=== PATIENT | male | born 1990 | race American Indian/Alaskan Native ===

== ENCOUNTER 2019-09-06 18:23 | Emergency (ER) | payer SELFPAY ==
--- NOTE | 2019-09-06 18:51 | Emergency Department Report ---
Blank Doc - Documentation Documentation: 28-year-old male that presents with right sided chest pain with radiation to r ight arm. Denies any SOB. This initial assessment/diagnostic orders/clinical plan/treatment(s) is/are subject to change based on patient's health status, clinical progression and re- assessment by fellow clinical providers in the ED. Further treatment and workup at subsequent clinical providers discretion. Patient/guardians urged not to elope from the ED as their condition may be serious if not clinically assessed and managed. Initial orders include: 1- Patient sent to [facility] for further evaluation and treatment 2- CXR 4- EKG
[2019-09-06 18:53] VITALS: BP 130/84
--- NOTE | 2019-09-06 19:44 | XRay Report ---
CHEST 2 VIEWS 192 INDICATION / CLINICAL INFORMATION: Right-sided intermittent chest pain radiating to right upper extre mity COMPARISON: None available. FINDINGS: SUPPORT DEVICES: None. HEART / MEDIASTINUM: No significant abnormality. LUNGS / PLEURA: No significant pulmonary or pleural abnormality. No pneumothorax. ADDITIONAL FINDINGS: No significant additional findings. IMPRESSION: No significant acute abnormality Signer Name: Micha Montalvo MD Signed: 09/06/2019 7:39 PM Workstation Name: [id number]
[2019-09-06] MEDS ORDERED: IBUPROFEN 800 MG TAB PO ONE (23:31)
--- NOTE | 2019-09-06 23:38 | Emergency Department Report ---
ED General Adult HPI - General Chief complaint: Chest Pain Stated complaint: ARM PAIN/SHOULDER PAIN Time Seen by Provider: 09/06/19 18:50 Source: patient Mode of arrival: Ambulatory Limitations: No Limitations - History of Present Illness Initial comments: Sided chest pain and radiating to right. There is no numbness no tingling or paralysis. pt denies sob, no wheezing, no n/v . symptoms are exacerabated by activity , symptoms relieve bn nothing. pt denies fall iury, or trauma, or and all - Related Data Previous Rx's Medication Instructions Recorded Last Taken Type Albuterol Sulfate [Ventolin HFA] 2 puff IH Q4H PRN #1 hfa.aer.ad 01/30/16 Unknown Rx Cetirizine HCl [ZyrTEC] 10 mg PO DAILY #20 capsule 01/30/16 Unknown Rx ALBUTEROL Inhaler (OR & NICU) 2 puff IH QID PRN #8.5 gram 09/06/19 Unknown Rx [ProAir HFA Inhaler] Amoxicillin/Potassium Clav 1 each PO BID 10 Days #20 tablet 09/06/19 Unknown Rx [Augmentin 875-125 Tablet] Benzonatate [Tessalon Perles] 100 mg PO Q8HR PRN #30 capsule 09/06/19 Unknown Rx Ibuprofen [Motrin 800 MG tab] 800 mg PO Q8HR PRN #30 tablet 09/06/19 Unknown Rx predniSONE [Deltasone] 40 mg PO QDAY 5 Days #10 tab 09/06/19 Unknown Rx Allergies Allergy/AdvReac Type Severity Reaction Status Date / Time No Known Allergies Allergy Verified 01/29/16 23:43 ED Review of Systems ROS: Stated complaint: ARM PAIN/SHOULDER PAIN Other details as noted in HPI ED Past Medical Hx - Past Medical History Previous Medical History?: Yes Hx Asthma: Yes - Surgical History Past Surgical History?: No - Social History Smoking Status: Never Smoker Substance Use Type: None - Medications Home Medications: Home Medications Medication Instructions Recorded Confirmed Last Taken Type Albuterol Sulfate [Ventolin HFA] 2 puff IH Q4H PRN #1 hfa.aer.ad 01/30/16 Unknown Rx Cetirizine HCl [ZyrTEC] 10 mg PO DAILY #20 capsule 01/30/16 Unknown Rx ALBUTEROL Inhaler (OR & NICU) 2 puff IH QID PRN #8.5 gram 09/06/19 Unknown Rx [ProAir HFA Inhaler] Amoxicillin/Potassium Clav 1 each PO BID 10 Days #20 tablet 09/06/19 Unknown Rx [Augmentin 875-125 Tablet] Benzonatate [Tessalon Perles] 100 mg PO Q8HR PRN #30 capsule 09/06/19 Unknown Rx Ibuprofen [Motrin 800 MG tab] 800 mg PO Q8HR PRN #30 tablet 09/06/19 Unknown Rx predniSONE [Deltasone] 40 mg PO QDAY 5 Days #10 tab 09/06/19 Unknown Rx ED Physical Exam - General Limitations: No Limitations ED Course Vital Signs 09/06/19 18:51 Temperature 98.1 F Pulse Rate 104 H Respiratory 18 Rate Blood Pressure 130/84 O2 Sat by Pulse 100 Oximetry ED Medical Decision Making - Radiology Data Radiology results: report reviewed, image reviewed Ordering Physician: JOE SAVAGE NP Date of Service: 09/06/19 Procedure(s): XR chest routine 2V Accession Number(s): [id number] cc: JOE SAVAGE NP Fluoro Time In Minutes: CHEST 2 VIEWS 1925 INDICATION / CLINICAL INFORMATION: Right-sided intermittent chest pain radiating to right upper extremity COMPARISON: None available. FINDINGS: SUPPORT DEVICES: None. HEART / MEDIASTINUM: No significant abnormality. LUNGS / PLEURA: No significant pulmonary or pleural abnormality. No pneumothorax. ADDITIONAL FINDINGS: No significant additional findings. IMPRESSION: No significant acute abnormality Signer Name: Micha Montalvo MD Signed: 09/06/2019 7:39 PM Workstation Name: [id number] Transcribed By: GJ Dictated By: Micha Montalvo MD Electronically Authenticated By: Micha Montalvo MD Signed Date/Time: 09/06/191938 DD/ 38 TD/TT: - Medical Decision Making This is a bronchitis or treatment of albuterol steroid inserted antihistamine patient follow up with PCP in 2-3 days pt verbalized agreement and under standing of same. Critical care attestation.: If time is entered above; I have spent that time in minutes in the direct care of this critically ill patient, excluding procedure time. ED Disposition Clinical Impression: Bronchitis Disposition: DC-01 TO HOME OR SELFCARE Is pt being admited?: No Does the pt Need Aspirin: No Instructions: Acute Bronchitis (ED) Prescriptions: Amoxicillin/Potassium Clav [Augmentin 875-125 Tablet] 1 each PO BID 10 Days #20 tablet predniSONE [Deltasone] 40 mg PO QDAY 5 Days #10 tab Ibuprofen [Motrin 800 MG tab] 800 mg PO Q8HR PRN #30 tablet PRN Reason: pain fever ALBUTEROL Inhaler (OR & NICU) [ProAir HFA Inhaler] 2 puff IH QID PRN #8.5 gram PRN Reason: Shortness Of Breath Benzonatate [Tessalon Perles] 100 mg PO Q8HR PRN #30 capsule PRN Reason: cough Referrals: PRIMARY CARE, [Primary Care Provider] - 3-5 Days Forms: Work/School Release Form(ED) Time of Disposition: 23:56
== END 2019-09-07 00:01 | disposition home or self-care (01) ==
LOC: ED 18:23
DX: J40 Bronchitis, not specified as acute or chronic (principal)
CPT/HCPCS: 71046; 93005; 93010